=== PATIENT | female | born 1965 | race Caucasian/White ===

== ENCOUNTER 2023-02-20 15:25 | Inpatient (IN) | payer MEDICARE ==
[~2023-02-20] VITALS: Ht 162.6 cm; Wt 73.5 kg
[2023-02-20 20:00] VITALS: BP 148/86; TEMP 97.5
[2023-02-20] MEDS ORDERED: LORAZEPAM 0.5 MG TABLET PO PRN (20:00)
[2023-02-20] MEDS ORDERED: BLOOD SUGAR DIAGNOSTIC 1 EACH STRIP IN ONE (20:00)
[2023-02-20] MEDS ORDERED: MAG HYDROX/AL HYDROX/SIMETH 30 ML UDC PO PRN (20:00)
[2023-02-20] MEDS ORDERED: MAGNESIUM HYDROXIDE 30 ML UDC PO PRN (20:00)
[2023-02-20] MEDS ORDERED: CLON0.5T4 PO (20:35)
[2023-02-20] MEDS ORDERED: FAMO20TA8 PO (20:35)
[2023-02-20] MEDS ORDERED: LACT10SO29 PO (20:35)
[2023-02-20] MEDS ORDERED: BENZ1TAB7 PO (20:35)
[2023-02-20] MEDS ORDERED: MELA3TAB41 PO (20:35)
[2023-02-20] MEDS ORDERED: BISA10SU11 RC (20:35)
[2023-02-20] MEDS ORDERED: NA P133E RC (20:35)
[2023-02-20] MEDS ORDERED: HALO0.5T PO (20:35)
[2023-02-20] MEDS ORDERED: FOLI0.4T6 PO (20:35)
[2023-02-20] MEDS ORDERED: SENN-261 PO (20:35)
[2023-02-20] MEDS ORDERED: OLAN2.5T3 PO (20:35)
[2023-02-20 20:50] VITALS: BP 148/86; TEMP 97.5; O2SAT 100
[2023-02-21] MEDS: ZOLPIDEM TARTRATE 5 MG TABLET PO PRN ×2 (00:10→21:08)
[2023-02-21] MEDS: ACETAMINOPHEN 325 MG TABLET PO PRN (04:44)
[2023-02-21 08:00] VITALS: BP 137/84; TEMP 97.9; O2SAT 100
[2023-02-21 08:37] LABS: ALBUMIN 2.7 g/dL (3.4-5.0); BILIRUBIN,TOTAL 0.2 mg/dL (0.2-1.0); CREATININE 0.9 mg/dL (0.6-1.3); POTASSIUM 4.6 mmol/L (3.5-5.1); TOTAL PROTEIN, SERUM 7.2 g/dL (6.4-8.2)
[2023-02-21] MEDS ORDERED: BISACODYL SUPP (10 MG) 10 MG/SUPP.RECT SUPP.RECT RC PRN (09:00)
[2023-02-21] MEDS ORDERED: NA PHOS,M-B/NA PHOS,DI-BA 1 EA ENEMA RC PRN (09:00)
[2023-02-21] MEDS ORDERED: SENNOSIDES 8.6 MG TABLET PO PRN (09:00)
[2023-02-21] MEDS: LACTULOSE 10 G/15 ML UDC (PYXIS) PO SCH ×2 (09:07→17:43)
[2023-02-21] MEDS: FAMOTIDINE (20 MG) 20 MG TABLET PO SCH ×2 (09:07→17:43)
[2023-02-21] MEDS: FOLIC ACID 1 MG TABLET PO SCH (09:07)
[2023-02-21] MEDS ORDERED: MAGN400O6 PO (10:14)
[2023-02-21] MEDS ORDERED: ACET-868 PO (10:14)
[2023-02-21] MEDS ORDERED: LORA-259 PO (10:14)
[2023-02-21] MEDS: DIVALPROEX SODIUM 250 MG TABLET.DR PO SCH ×3 (10:27→17:43)
[2023-02-21 16:00] VITALS: BP 146/93; TEMP 98.6; O2SAT 100
[2023-02-21] MEDS ORDERED: OLANZAPINE 10 MG VIAL IM STA (16:05)
[2023-02-21] MEDS: HALOPERIDOL 5 MG TABLET PO SCH (17:44)
[2023-02-21] MEDS: BENZTROPINE MESYLATE (1 MG) 1 MG TABLET PO SCH (17:45)
[2023-02-21 20:10] VITALS: BP 150/90; TEMP 98.4; O2SAT 100
[2023-02-21] MEDS ORDERED: Medication Not On Formulary EA (Melatonin 3 MG) PO SCH (22:00)
[2023-02-22] MEDS: LORAZEPAM 0.5 MG TABLET PO PRN ×2 (01:04→08:59)
[2023-02-22 08:00] VITALS: BP 150/85; TEMP 97.6; O2SAT 98
[2023-02-22] MEDS: LACTULOSE 10 G/15 ML UDC (PYXIS) PO SCH ×2 (08:23→16:55)
[2023-02-22] MEDS: DIVALPROEX SODIUM 250 MG TABLET.DR PO SCH ×3 (08:23→16:55)
[2023-02-22] MEDS: FAMOTIDINE (20 MG) 20 MG TABLET PO SCH ×2 (08:23→16:55)
[2023-02-22] MEDS: HALOPERIDOL 5 MG TABLET PO SCH ×2 (08:23→16:55)
[2023-02-22] MEDS: FOLIC ACID 1 MG TABLET PO SCH (08:23)
[2023-02-22] MEDS: BENZTROPINE MESYLATE (1 MG) 1 MG TABLET PO SCH ×2 (08:23→16:55)
[2023-02-22] MEDS ORDERED: OLANZAPINE 10 MG VIAL IM ONE (09:30)
[2023-02-22] MEDS ORDERED: diphenhydrAMINE HCL 50 MG/ML VIAL IV ONE (14:30)
[2023-02-22] MEDS ORDERED: LORAZEPAM INJ 2 MG/ML VIAL IM ONE (14:30)
[2023-02-22] MEDS ORDERED: HALOPERIDOL LACTATE INJ 5 MG/ML VIAL IM ONE (14:30)
[2023-02-22 16:00] VITALS: BP 141/93; TEMP 97.8; O2SAT 96
[2023-02-22] MEDS: AMMONIUM LACTATE 227 GM BOTTLE TP SCH (16:56)
[2023-02-22 20:00] VITALS: BP 126/84; TEMP 97.3; O2SAT 98
[2023-02-23] MEDS: ZOLPIDEM TARTRATE 5 MG TABLET PO PRN (00:25)
[2023-02-23] MEDS: ACETAMINOPHEN 325 MG TABLET PO PRN (02:54)
[2023-02-23] MEDS: LORAZEPAM 0.5 MG TABLET PO PRN (08:23)
[2023-02-23] MEDS: FAMOTIDINE (20 MG) 20 MG TABLET PO SCH ×2 (08:23→16:33)
[2023-02-23] MEDS: DIVALPROEX SODIUM 250 MG TABLET.DR PO SCH ×4 (08:23→21:20)
[2023-02-23] MEDS: BENZTROPINE MESYLATE (1 MG) 1 MG TABLET PO SCH ×2 (08:23→16:33)
[2023-02-23] MEDS: FOLIC ACID 1 MG TABLET PO SCH (08:23)
[2023-02-23] MEDS: HALOPERIDOL 5 MG TABLET PO SCH ×2 (08:23→16:33)
[2023-02-23] MEDS: LACTULOSE 10 G/15 ML UDC (PYXIS) PO SCH ×2 (08:30→16:33)
[2023-02-23] MEDS: AMMONIUM LACTATE 227 GM BOTTLE TP SCH ×2 (08:30→16:33)
[2023-02-23] MEDS: LORAZEPAM 1 MG TABLET PO PRN (12:08)
[2023-02-23 12:18] LABS: THYROID STIMULATING HORMONE 3.183 uIU/mL (0.358-3.74)
[2023-02-23] MEDS ORDERED: OLANZAPINE 10 MG VIAL IM ONE (13:30)
[2023-02-23] MEDS ORDERED: LORAZEPAM 0.5 MG TABLET PO PRN (16:00)
[2023-02-24] MEDS: BENZTROPINE MESYLATE (1 MG) 1 MG TABLET PO SCH ×2 (07:43→17:24)
[2023-02-24] MEDS: LACTULOSE 10 G/15 ML UDC (PYXIS) PO SCH ×2 (07:43→17:24)
[2023-02-24] MEDS: DIVALPROEX SODIUM 250 MG TABLET.DR PO SCH ×4 (07:43→21:15)
[2023-02-24] MEDS: HALOPERIDOL 5 MG TABLET PO SCH ×2 (07:43→17:24)
[2023-02-24] MEDS: LORAZEPAM 1 MG TABLET PO PRN (07:43)
[2023-02-24] MEDS: FOLIC ACID 1 MG TABLET PO SCH (07:43)
[2023-02-24] MEDS: FAMOTIDINE (20 MG) 20 MG TABLET PO SCH ×2 (07:43→17:24)
[2023-02-24] MEDS: AMMONIUM LACTATE 227 GM BOTTLE TP SCH ×2 (07:44→17:22)
[2023-02-24 08:00] VITALS: BP 152/91; TEMP 98.1; O2SAT 98
[2023-02-24] MEDS ORDERED: OLANZAPINE 10 MG VIAL IM ONE (14:00)
[2023-02-24 16:00] VITALS: BP 149/90; TEMP 97.6; O2SAT 96
[2023-02-24 20:56] VITALS: BP 143/88; TEMP 97.9; O2SAT 96
[2023-02-25] MEDS: ACETAMINOPHEN 325 MG TABLET PO PRN (00:33)
[2023-02-25 08:00] VITALS: BP 128/90; TEMP 98.2; O2SAT 98
[2023-02-25] MEDS: FAMOTIDINE (20 MG) 20 MG TABLET PO SCH ×2 (08:00→16:46)
[2023-02-25] MEDS: LORAZEPAM 1 MG TABLET PO PRN ×2 (08:00→16:46)
[2023-02-25] MEDS: LACTULOSE 10 G/15 ML UDC (PYXIS) PO SCH ×2 (08:00→16:47)
[2023-02-25] MEDS: BENZTROPINE MESYLATE (1 MG) 1 MG TABLET PO SCH ×2 (08:00→16:46)
[2023-02-25] MEDS: DIVALPROEX SODIUM 250 MG TABLET.DR PO SCH ×4 (08:00→21:13)
[2023-02-25] MEDS: HALOPERIDOL 5 MG TABLET PO SCH ×2 (08:00→16:46)
[2023-02-25] MEDS: FOLIC ACID 1 MG TABLET PO SCH (08:00)
[2023-02-25] MEDS: AMMONIUM LACTATE 227 GM BOTTLE TP SCH ×2 (09:26→16:47)
[2023-02-25] MEDS: LITHIUM CARBONATE 150 MG CAPSULE PO SCH ×2 (11:46→21:13)
[2023-02-25 16:06] VITALS: BP 127/89; TEMP 97.8; O2SAT 98
[2023-02-25 20:20] VITALS: BP 130/96; TEMP 98.1; O2SAT 98
[2023-02-26] MEDS: ACETAMINOPHEN 325 MG TABLET PO PRN (04:57)
[2023-02-26] MEDS: LORAZEPAM 1 MG TABLET PO PRN ×2 (07:47→16:36)
[2023-02-26] MEDS: FAMOTIDINE (20 MG) 20 MG TABLET PO SCH ×2 (08:09→16:38)
[2023-02-26] MEDS: FOLIC ACID 1 MG TABLET PO SCH (08:09)
[2023-02-26] MEDS: HALOPERIDOL 5 MG TABLET PO SCH ×3 (08:10→16:37)
[2023-02-26] MEDS: LITHIUM CARBONATE 150 MG CAPSULE PO SCH ×2 (08:10→20:09)
[2023-02-26] MEDS: DIVALPROEX SODIUM 250 MG TABLET.DR PO SCH ×4 (08:11→20:09)
[2023-02-26] MEDS: LACTULOSE 10 G/15 ML UDC (PYXIS) PO SCH ×2 (08:12→16:38)
[2023-02-26] MEDS: BENZTROPINE MESYLATE (1 MG) 1 MG TABLET PO SCH ×2 (08:58→16:37)
[2023-02-26] MEDS: AMMONIUM LACTATE 227 GM BOTTLE TP SCH ×2 (09:00→16:39)
[2023-02-26] MEDS ORDERED: OLANZAPINE 10 MG VIAL IM ONE (09:00)
[2023-02-26] MEDS ORDERED: diphenhydrAMINE HCL 50 MG/ML VIAL IV ONE (14:00)
[2023-02-26] MEDS ORDERED: HALOPERIDOL LACTATE INJ 5 MG/ML VIAL IM ONE (14:00)
[2023-02-26 16:00] VITALS: BP 156/69; TEMP 98.1; O2SAT 95
[2023-02-26 20:27] VITALS: BP 133/77; TEMP 98.2; O2SAT 100
[2023-02-27 08:00] VITALS: BP 106/78; TEMP 98.1; O2SAT 100
[2023-02-27] MEDS: LITHIUM CARBONATE 150 MG CAPSULE PO SCH ×2 (08:00→21:14)
[2023-02-27] MEDS: LACTULOSE 10 G/15 ML UDC (PYXIS) PO SCH ×2 (08:00→17:00)
[2023-02-27] MEDS: DIVALPROEX SODIUM 250 MG TABLET.DR PO SCH ×4 (08:01→21:14)
[2023-02-27] MEDS: HALOPERIDOL 5 MG TABLET PO SCH ×3 (08:01→17:00)
[2023-02-27] MEDS: FOLIC ACID 1 MG TABLET PO SCH (08:01)
[2023-02-27] MEDS: BENZTROPINE MESYLATE (1 MG) 1 MG TABLET PO SCH ×2 (08:01→17:00)
[2023-02-27] MEDS: FAMOTIDINE (20 MG) 20 MG TABLET PO SCH ×2 (08:02→17:00)
[2023-02-27] MEDS: AMMONIUM LACTATE 227 GM BOTTLE TP SCH ×2 (08:02→17:00)
[2023-02-27] MEDS: LORAZEPAM 1 MG TABLET PO PRN (15:04)
[2023-02-27 16:00] VITALS: BP 114/98; TEMP 98.6; O2SAT 100
[2023-02-27 20:19] VITALS: BP 124/84; TEMP 98.2; O2SAT 100
[2023-02-28] MEDS: ZOLPIDEM TARTRATE 5 MG TABLET PO PRN (01:32)
[2023-02-28] MEDS: ACETAMINOPHEN 325 MG TABLET PO PRN (07:09)
[2023-02-28 08:00] VITALS: BP 111/69; TEMP 97.8; O2SAT 98
[2023-02-28] MEDS: LITHIUM CARBONATE 150 MG CAPSULE PO SCH ×2 (08:04→20:15)
[2023-02-28] MEDS: FOLIC ACID 1 MG TABLET PO SCH (08:04)
[2023-02-28] MEDS: DIVALPROEX SODIUM 250 MG TABLET.DR PO SCH ×4 (08:04→20:15)
[2023-02-28] MEDS: FAMOTIDINE (20 MG) 20 MG TABLET PO SCH ×2 (08:04→16:23)
[2023-02-28] MEDS: BENZTROPINE MESYLATE (1 MG) 1 MG TABLET PO SCH ×2 (08:04→16:23)
[2023-02-28] MEDS: LACTULOSE 10 G/15 ML UDC (PYXIS) PO SCH ×2 (08:04→16:22)
[2023-02-28] MEDS: HALOPERIDOL 5 MG TABLET PO SCH ×3 (08:04→16:23)
[2023-02-28] MEDS: AMMONIUM LACTATE 227 GM BOTTLE TP SCH ×2 (08:09→16:25)
[2023-02-28] MEDS: LORAZEPAM 1 MG TABLET PO PRN (13:43)
[2023-02-28 16:00] VITALS: BP 126/70; TEMP 97.9; O2SAT 100
[2023-02-28 20:06] VITALS: BP 126/65; TEMP 98.6; O2SAT 97
[2023-03-01] MEDS: ACETAMINOPHEN 325 MG TABLET PO PRN (04:55)
[2023-03-01] MEDS: BENZTROPINE MESYLATE (1 MG) 1 MG TABLET PO SCH ×2 (08:13→17:15)
[2023-03-01] MEDS: LITHIUM CARBONATE 150 MG CAPSULE PO SCH ×4 (08:13→17:15)
[2023-03-01] MEDS: FOLIC ACID 1 MG TABLET PO SCH (08:13)
[2023-03-01] MEDS: LACTULOSE 10 G/15 ML UDC (PYXIS) PO SCH ×2 (08:14→17:16)
[2023-03-01] MEDS: DIVALPROEX SODIUM 250 MG TABLET.DR PO SCH ×4 (08:14→17:15)
[2023-03-01] MEDS: HALOPERIDOL 5 MG TABLET PO SCH ×3 (08:14→17:15)
[2023-03-01] MEDS: FAMOTIDINE (20 MG) 20 MG TABLET PO SCH ×2 (08:14→17:16)
[2023-03-01] MEDS: AMMONIUM LACTATE 227 GM BOTTLE TP SCH ×2 (08:15→17:22)
[2023-03-01] MEDS: LORAZEPAM 1 MG TABLET PO PRN (14:21)
[2023-03-01 22:00] VITALS: BP 134/69; TEMP 98; O2SAT 98
[2023-03-02] MEDS: LORAZEPAM 1 MG TABLET PO PRN (01:39)
[2023-03-02 08:00] VITALS: BP 112/62; TEMP 98; O2SAT 100
[2023-03-02] MEDS: DIVALPROEX SODIUM 250 MG TABLET.DR PO SCH ×3 (08:03→16:45)
[2023-03-02] MEDS: BENZTROPINE MESYLATE (1 MG) 1 MG TABLET PO SCH ×2 (08:03→16:46)
[2023-03-02] MEDS: LITHIUM CARBONATE 150 MG CAPSULE PO SCH ×3 (08:03→16:45)
[2023-03-02] MEDS: FAMOTIDINE (20 MG) 20 MG TABLET PO SCH ×2 (08:03→16:46)
[2023-03-02] MEDS: HALOPERIDOL 5 MG TABLET PO SCH ×3 (08:03→16:46)
[2023-03-02] MEDS: FOLIC ACID 1 MG TABLET PO SCH (08:03)
[2023-03-02] MEDS: LACTULOSE 10 G/15 ML UDC (PYXIS) PO SCH ×2 (08:04→16:46)
[2023-03-02] MEDS: AMMONIUM LACTATE 227 GM BOTTLE TP SCH ×2 (08:08→16:50)
[2023-03-02 16:00] VITALS: BP 119/67; TEMP 98.6; O2SAT 100
[2023-03-02 20:06] VITALS: BP 108/54; TEMP 99.7; O2SAT 100
[2023-03-03] MEDS: LORAZEPAM 1 MG TABLET PO PRN (04:55)
[2023-03-03 08:00] VITALS: BP 119/71; TEMP 97.6; O2SAT 100
[2023-03-03] MEDS ORDERED: HALOPERIDOL LACTATE INJ 5 MG/ML VIAL IM ONE (08:00)
[2023-03-03] MEDS ORDERED: LORAZEPAM INJ 2 MG/ML VIAL IM ONE (08:00)
[2023-03-03] MEDS ORDERED: diphenhydrAMINE HCL 50 MG/ML VIAL IM ONE (08:00)
[2023-03-03] MEDS: HALOPERIDOL 5 MG TABLET PO SCH ×3 (09:00→17:07)
[2023-03-03] MEDS: DIVALPROEX SODIUM 250 MG TABLET.DR PO SCH ×3 (09:14→17:07)
[2023-03-03] MEDS: FAMOTIDINE (20 MG) 20 MG TABLET PO SCH ×2 (09:14→17:07)
[2023-03-03] MEDS: LITHIUM CARBONATE 150 MG CAPSULE PO SCH ×3 (09:14→17:07)
[2023-03-03] MEDS: LACTULOSE 10 G/15 ML UDC (PYXIS) PO SCH ×2 (09:14→17:10)
[2023-03-03] MEDS: FOLIC ACID 1 MG TABLET PO SCH (09:14)
[2023-03-03] MEDS: BENZTROPINE MESYLATE (1 MG) 1 MG TABLET PO SCH ×2 (09:14→17:07)
[2023-03-03] MEDS: AMMONIUM LACTATE 227 GM BOTTLE TP SCH ×2 (09:49→17:08)
[2023-03-03 16:00] VITALS: BP 108/71; TEMP 97.6; O2SAT 99
[2023-03-03 20:00] VITALS: BP 110/69; TEMP 98.6; O2SAT 100
[2023-03-04] MEDS: LITHIUM CARBONATE 150 MG CAPSULE PO SCH ×3 (08:04→17:21)
[2023-03-04] MEDS: LACTULOSE 10 G/15 ML UDC (PYXIS) PO SCH ×2 (08:04→17:21)
[2023-03-04] MEDS: HALOPERIDOL 5 MG TABLET PO SCH ×3 (08:04→17:21)
[2023-03-04] MEDS: FAMOTIDINE (20 MG) 20 MG TABLET PO SCH ×2 (08:05→17:21)
[2023-03-04] MEDS: DIVALPROEX SODIUM 250 MG TABLET.DR PO SCH ×3 (08:05→17:22)
[2023-03-04] MEDS: BENZTROPINE MESYLATE (1 MG) 1 MG TABLET PO SCH ×2 (08:05→17:21)
[2023-03-04] MEDS: AMMONIUM LACTATE 227 GM BOTTLE TP SCH ×2 (08:05→17:00)
[2023-03-04] MEDS: FOLIC ACID 1 MG TABLET PO SCH (08:06)
[2023-03-04 20:02] VITALS: BP 117/65; TEMP 98.4; O2SAT 99
[2023-03-04] MEDS: LORAZEPAM 1 MG TABLET PO PRN (20:24)
[2023-03-04] MEDS: ACETAMINOPHEN 325 MG TABLET PO PRN (20:28)
[2023-03-05 08:00] VITALS: BP 116/61; TEMP 98.6; O2SAT 97
[2023-03-05] MEDS: LACTULOSE 10 G/15 ML UDC (PYXIS) PO SCH ×2 (08:47→16:43)
[2023-03-05] MEDS: LORAZEPAM 1 MG TABLET PO PRN ×2 (08:48→16:43)
[2023-03-05] MEDS: LITHIUM CARBONATE 150 MG CAPSULE PO SCH ×3 (08:48→16:44)
[2023-03-05] MEDS: FOLIC ACID 1 MG TABLET PO SCH (08:48)
[2023-03-05] MEDS: DIVALPROEX SODIUM 250 MG TABLET.DR PO SCH ×3 (08:48→16:43)
[2023-03-05] MEDS: FAMOTIDINE (20 MG) 20 MG TABLET PO SCH ×2 (08:48→16:43)
[2023-03-05] MEDS: AMMONIUM LACTATE 227 GM BOTTLE TP SCH ×2 (08:49→16:45)
[2023-03-05] MEDS: HALOPERIDOL 5 MG TABLET PO SCH ×4 (08:49→21:28)
[2023-03-05] MEDS: BENZTROPINE MESYLATE (1 MG) 1 MG TABLET PO SCH ×2 (08:49→16:43)
[2023-03-05 16:00] VITALS: BP 127/76; TEMP 97.9; O2SAT 96
[2023-03-05] MEDS ORDERED: OLANZAPINE 10 MG VIAL IM ONE (17:30)
[2023-03-05 21:53] VITALS: BP 112/76; TEMP 98; O2SAT 99
[2023-03-06 08:00] VITALS: BP 129/79; TEMP 98.7; O2SAT 100
[2023-03-06] MEDS: LACTULOSE 10 G/15 ML UDC (PYXIS) PO SCH ×2 (08:26→16:03)
[2023-03-06] MEDS: LITHIUM CARBONATE 150 MG CAPSULE PO SCH ×3 (08:27→16:03)
[2023-03-06] MEDS: BENZTROPINE MESYLATE (1 MG) 1 MG TABLET PO SCH ×2 (08:27→16:03)
[2023-03-06] MEDS: HALOPERIDOL 5 MG TABLET PO SCH ×4 (08:27→21:27)
[2023-03-06] MEDS: DIVALPROEX SODIUM 250 MG TABLET.DR PO SCH ×3 (08:27→16:04)
[2023-03-06] MEDS: FOLIC ACID 1 MG TABLET PO SCH (08:27)
[2023-03-06] MEDS: FAMOTIDINE (20 MG) 20 MG TABLET PO SCH ×2 (08:28→16:04)
[2023-03-06] MEDS: AMMONIUM LACTATE 227 GM BOTTLE TP SCH ×2 (08:28→16:10)
[2023-03-06] MEDS: clonazePAM 0.5 MG TABLET PO SCH ×3 (10:35→16:06)
[2023-03-06 16:00] VITALS: BP 113/62; TEMP 98.7; O2SAT 100
[2023-03-06] MEDS: hydrOXYzine PAMOATE 25 MG CAPSULE PO PRN (19:26)
[2023-03-06 20:28] VITALS: BP 132/69; TEMP 97.8; O2SAT 99
[2023-03-07] MEDS: DIVALPROEX SODIUM 250 MG TABLET.DR PO SCH ×4 (08:32→21:54)
[2023-03-07] MEDS: hydrOXYzine PAMOATE 25 MG CAPSULE PO PRN (08:32)
[2023-03-07] MEDS: FAMOTIDINE (20 MG) 20 MG TABLET PO SCH ×2 (08:33→16:24)
[2023-03-07] MEDS: BENZTROPINE MESYLATE (1 MG) 1 MG TABLET PO SCH ×2 (08:33→16:24)
[2023-03-07] MEDS: clonazePAM 0.5 MG TABLET PO SCH ×3 (08:33→16:24)
[2023-03-07] MEDS: LITHIUM CARBONATE 150 MG CAPSULE PO SCH ×3 (08:33→16:24)
[2023-03-07] MEDS: FOLIC ACID 1 MG TABLET PO SCH (08:33)
[2023-03-07] MEDS: HALOPERIDOL 5 MG TABLET PO SCH ×4 (08:34→21:54)
[2023-03-07] MEDS: LACTULOSE 10 G/15 ML UDC (PYXIS) PO SCH ×2 (08:34→16:23)
[2023-03-07] MEDS: AMMONIUM LACTATE 227 GM BOTTLE TP SCH ×2 (08:35→17:02)
[2023-03-07 16:00] VITALS: BP 108/70; TEMP 98.6; O2SAT 100
[2023-03-07 20:29] VITALS: BP 119/64; TEMP 98.2; O2SAT 99
[2023-03-07 21:55] VITALS: BP 118/68; TEMP 98; O2SAT 99
[2023-03-08 08:00] VITALS: BP 106/64; TEMP 97.8; O2SAT 100
[2023-03-08] MEDS: LACTULOSE 10 G/15 ML UDC (PYXIS) PO SCH ×2 (09:07→16:47)
[2023-03-08] MEDS: clonazePAM 0.5 MG TABLET PO SCH ×3 (09:08→16:46)
[2023-03-08] MEDS: HALOPERIDOL 5 MG TABLET PO SCH ×4 (09:08→20:39)
[2023-03-08] MEDS: FAMOTIDINE (20 MG) 20 MG TABLET PO SCH ×2 (09:08→16:46)
[2023-03-08] MEDS: FOLIC ACID 1 MG TABLET PO SCH (09:08)
[2023-03-08] MEDS: DIVALPROEX SODIUM 250 MG TABLET.DR PO SCH ×4 (09:08→20:39)
[2023-03-08] MEDS: LITHIUM CARBONATE 150 MG CAPSULE PO SCH (09:08)
[2023-03-08] MEDS: BENZTROPINE MESYLATE (1 MG) 1 MG TABLET PO SCH ×2 (09:08→16:46)
[2023-03-08] MEDS: AMMONIUM LACTATE 227 GM BOTTLE TP SCH ×2 (12:25→16:47)
[2023-03-08] MEDS ORDERED: LITHIUM CARBONATE 150 MG CAPSULE PO SCH (13:00)
[2023-03-08 16:00] VITALS: BP 126/82; TEMP 97.8; O2SAT 96
[2023-03-09 06:16] VITALS: BP 126/82; TEMP 91.8; O2SAT 96
[2023-03-09 08:00] VITALS: BP 119/63; TEMP 98; O2SAT 94
[2023-03-09] MEDS: FAMOTIDINE (20 MG) 20 MG TABLET PO SCH ×2 (08:26→17:00)
[2023-03-09] MEDS: BENZTROPINE MESYLATE (1 MG) 1 MG TABLET PO SCH ×2 (08:26→17:00)
[2023-03-09] MEDS: HALOPERIDOL 5 MG TABLET PO SCH ×4 (08:26→21:00)
[2023-03-09] MEDS: LACTULOSE 10 G/15 ML UDC (PYXIS) PO SCH ×2 (08:26→17:00)
[2023-03-09] MEDS: DIVALPROEX SODIUM 250 MG TABLET.DR PO SCH ×4 (08:27→21:00)
[2023-03-09] MEDS: clonazePAM 0.5 MG TABLET PO SCH ×3 (08:27→17:00)
[2023-03-09] MEDS: FOLIC ACID 1 MG TABLET PO SCH (08:28)
[2023-03-09] MEDS: AMMONIUM LACTATE 227 GM BOTTLE TP SCH ×2 (08:45→17:00)
[2023-03-09] MEDS: OLANZAPINE 5 MG TABLET PO SCH ×2 (11:35→17:00)
[2023-03-09] MEDS: LITHIUM CARBONATE 150 MG CAPSULE PO SCH ×2 (12:16→17:00)
[2023-03-09 16:00] VITALS: BP 98/60; TEMP 98.6; O2SAT 100
[2023-03-09 20:00] VITALS: BP 144/86; TEMP 98.1; O2SAT 98
[2023-03-10 08:00] VITALS: BP 101/69; TEMP 97.7; O2SAT 100
[2023-03-10] MEDS: HALOPERIDOL 5 MG TABLET PO SCH ×4 (09:00→20:38)
[2023-03-10] MEDS: DIVALPROEX SODIUM 250 MG TABLET.DR PO SCH ×4 (09:00→20:37)
[2023-03-10] MEDS: LITHIUM CARBONATE 150 MG CAPSULE PO SCH ×3 (09:00→16:09)
[2023-03-10] MEDS ORDERED: MIDODRINE HCL (5MG) 5 MG TABLET PO PRN (10:00)
[2023-03-10] MEDS: FAMOTIDINE (20 MG) 20 MG TABLET PO SCH ×2 (10:59→17:05)
[2023-03-10] MEDS: FOLIC ACID 1 MG TABLET PO SCH (11:00)
[2023-03-10] MEDS: LACTULOSE 10 G/15 ML UDC (PYXIS) PO SCH ×3 (11:00→17:05)
[2023-03-10] MEDS: BENZTROPINE MESYLATE (1 MG) 1 MG TABLET PO SCH ×2 (11:00→17:05)
[2023-03-10] MEDS: AMMONIUM LACTATE 227 GM BOTTLE TP SCH ×2 (12:14→17:52)
[2023-03-10] MEDS: OLANZAPINE 5 MG TABLET PO SCH ×2 (12:15→17:05)
[2023-03-10 13:28] LABS: APPEARANCE,URINE CLEAR (CLEAR); BILIRUBIN,URINE NEGATIVE (NEGATIVE); BLOOD, URINE NEGATIVE Ery/uL (NEGATIVE); COLOR,URINE YELLOW (YELLOW); KETONES,URINE NEGATIVE (NEGATIVE); LEUKOCYTE ESTERASE ,URINE 1+ (NEGATIVE); NITRITE, URINE NEGATIVE (NEGATIVE); PH,URINE 6.5 (5.0-8.0); PROTEIN,URINE NEGATIVE (NEGATIVE); UGLUCOSE NEGATIVE (NEGATIVE)
[2023-03-10 15:36] LABS: ADD URINE CULTURE YES; BACTERIA,URINE 1+ /HPF (None Seen); RBC,URINE 0-2 /HPF (0-2); SQUAMOUS EPITHELIAL CELL,UR Few /HPF (None Seen)
[2023-03-10 16:00] VITALS: BP 131/77; TEMP 97.9; O2SAT 100
[2023-03-10] MEDS: SULFAMETH/TRIMETH 800/160 MG 1 UDTAB TABLET PO SCH ×2 (18:11→21:00)
[2023-03-10 20:02] VITALS: BP 145/73; TEMP 98.2; O2SAT 99
[2023-03-11 08:00] VITALS: BP 129/76; TEMP 97.8; O2SAT 100
[2023-03-11] MEDS: hydrOXYzine PAMOATE 25 MG CAPSULE PO PRN (08:00)
[2023-03-11] MEDS: FAMOTIDINE (20 MG) 20 MG TABLET PO SCH ×2 (08:00→17:36)
[2023-03-11] MEDS: FOLIC ACID 1 MG TABLET PO SCH (08:00)
[2023-03-11] MEDS: LITHIUM CARBONATE 150 MG CAPSULE PO SCH ×3 (08:00→17:37)
[2023-03-11] MEDS: HALOPERIDOL 5 MG TABLET PO SCH ×4 (08:00→21:30)
[2023-03-11] MEDS: DIVALPROEX SODIUM 250 MG TABLET.DR PO SCH ×4 (08:00→21:31)
[2023-03-11] MEDS: LACTULOSE 10 G/15 ML UDC (PYXIS) PO SCH ×2 (08:00→17:36)
[2023-03-11] MEDS: SULFAMETH/TRIMETH 800/160 MG 1 UDTAB TABLET PO SCH ×2 (08:01→21:30)
[2023-03-11] MEDS: BENZTROPINE MESYLATE (1 MG) 1 MG TABLET PO SCH ×2 (08:01→17:36)
[2023-03-11] MEDS: OLANZAPINE 5 MG TABLET PO SCH ×2 (08:01→17:39)
[2023-03-11] MEDS: AMMONIUM LACTATE 227 GM BOTTLE TP SCH ×2 (08:08→17:36)
[2023-03-11 16:00] VITALS: BP 130/76; TEMP 98; O2SAT 98
[2023-03-11] MEDS: ZOLPIDEM TARTRATE 5 MG TABLET PO PRN (19:52)
[2023-03-11 20:00] VITALS: BP 145/73; TEMP 98.2; O2SAT 99
[2023-03-12 08:00] VITALS: BP 127/84; TEMP 98.6; O2SAT 98
[2023-03-12] MEDS: DIVALPROEX SODIUM 250 MG TABLET.DR PO SCH ×4 (09:10→21:10)
[2023-03-12] MEDS: FOLIC ACID 1 MG TABLET PO SCH (09:10)
[2023-03-12] MEDS: LITHIUM CARBONATE 150 MG CAPSULE PO SCH ×3 (09:10→16:29)
[2023-03-12] MEDS: BENZTROPINE MESYLATE (1 MG) 1 MG TABLET PO SCH ×2 (09:10→16:29)
[2023-03-12] MEDS: FAMOTIDINE (20 MG) 20 MG TABLET PO SCH ×2 (09:10→16:29)
[2023-03-12] MEDS: HALOPERIDOL 5 MG TABLET PO SCH ×4 (09:11→21:10)
[2023-03-12] MEDS: LACTULOSE 10 G/15 ML UDC (PYXIS) PO SCH ×2 (09:12→16:28)
[2023-03-12] MEDS: SULFAMETH/TRIMETH 800/160 MG 1 UDTAB TABLET PO SCH ×2 (09:15→21:10)
[2023-03-12] MEDS: OLANZAPINE 5 MG TABLET PO SCH ×2 (09:15→16:29)
[2023-03-12] MEDS: AMMONIUM LACTATE 227 GM BOTTLE TP SCH ×2 (09:16→17:19)
[2023-03-12] MEDS: hydrOXYzine PAMOATE 25 MG CAPSULE PO PRN (12:25)
[2023-03-12 16:00] VITALS: BP 106/62; TEMP 98.7; O2SAT 97
[2023-03-12 20:32] VITALS: BP 109/67; TEMP 98.2; O2SAT 100
[2023-03-13 08:00] VITALS: BP 126/74; TEMP 97.8; O2SAT 95
[2023-03-13] MEDS: SULFAMETH/TRIMETH 800/160 MG 1 UDTAB TABLET PO SCH ×2 (08:09→20:29)
[2023-03-13] MEDS: BENZTROPINE MESYLATE (1 MG) 1 MG TABLET PO SCH ×2 (08:09→16:35)
[2023-03-13] MEDS: LACTULOSE 10 G/15 ML UDC (PYXIS) PO SCH ×2 (08:09→16:36)
[2023-03-13] MEDS: LITHIUM CARBONATE 150 MG CAPSULE PO SCH ×3 (08:09→16:35)
[2023-03-13] MEDS: FAMOTIDINE (20 MG) 20 MG TABLET PO SCH ×2 (08:09→16:35)
[2023-03-13] MEDS: DIVALPROEX SODIUM 250 MG TABLET.DR PO SCH ×4 (08:09→20:29)
[2023-03-13] MEDS: OLANZAPINE 5 MG TABLET PO SCH ×3 (08:09→16:35)
[2023-03-13] MEDS: HALOPERIDOL 5 MG TABLET PO SCH ×4 (08:09→21:05)
[2023-03-13] MEDS: FOLIC ACID 1 MG TABLET PO SCH (08:09)
[2023-03-13] MEDS: AMMONIUM LACTATE 227 GM BOTTLE TP SCH ×2 (08:14→16:41)
[2023-03-13] MEDS: hydrOXYzine PAMOATE 25 MG CAPSULE PO PRN (11:17)
[2023-03-13 16:02] VITALS: BP 140/72; TEMP 97.8; O2SAT 99
[2023-03-13 20:00] VITALS: BP 97/60; TEMP 97.8; O2SAT 100
[2023-03-14] MEDS: ACETAMINOPHEN 325 MG TABLET PO PRN (04:17)
[2023-03-14 08:00] VITALS: BP 132/78; TEMP 98.7; O2SAT 98
[2023-03-14] MEDS: LACTULOSE 10 G/15 ML UDC (PYXIS) PO SCH ×2 (08:39→16:47)
[2023-03-14] MEDS: BENZTROPINE MESYLATE (1 MG) 1 MG TABLET PO SCH ×2 (08:40→16:47)
[2023-03-14] MEDS: SULFAMETH/TRIMETH 800/160 MG 1 UDTAB TABLET PO SCH ×2 (08:40→21:27)
[2023-03-14] MEDS: LITHIUM CARBONATE 150 MG CAPSULE PO SCH ×3 (08:40→16:47)
[2023-03-14] MEDS: OLANZAPINE 5 MG TABLET PO SCH ×3 (08:40→16:47)
[2023-03-14] MEDS: FAMOTIDINE (20 MG) 20 MG TABLET PO SCH ×2 (08:40→16:46)
[2023-03-14] MEDS: HALOPERIDOL 5 MG TABLET PO SCH ×4 (08:40→21:26)
[2023-03-14] MEDS: DIVALPROEX SODIUM 250 MG TABLET.DR PO SCH ×4 (08:40→21:26)
[2023-03-14] MEDS: FOLIC ACID 1 MG TABLET PO SCH (08:40)
[2023-03-14] MEDS: AMMONIUM LACTATE 227 GM BOTTLE TP SCH ×2 (08:42→16:48)
[2023-03-14] MEDS: hydrOXYzine PAMOATE 25 MG CAPSULE PO PRN (15:38)
[2023-03-14 16:00] VITALS: BP 102/63; TEMP 98.6; O2SAT 96
[2023-03-14 20:08] VITALS: BP 116/75; TEMP 97.7; O2SAT 97
[2023-03-15] MEDS: ACETAMINOPHEN 325 MG TABLET PO PRN (00:57)
[2023-03-15 08:00] VITALS: BP 97/68; TEMP 97.9; O2SAT 94
[2023-03-15] MEDS: BENZTROPINE MESYLATE (1 MG) 1 MG TABLET PO SCH (08:46)
[2023-03-15] MEDS: AMMONIUM LACTATE 227 GM BOTTLE TP SCH (08:46)
[2023-03-15] MEDS: DIVALPROEX SODIUM 250 MG TABLET.DR PO SCH ×2 (08:46→12:21)
[2023-03-15] MEDS: OLANZAPINE 5 MG TABLET PO SCH ×2 (08:46→12:21)
[2023-03-15] MEDS: FAMOTIDINE (20 MG) 20 MG TABLET PO SCH (08:46)
[2023-03-15] MEDS: LITHIUM CARBONATE 150 MG CAPSULE PO SCH ×2 (08:46→12:21)
[2023-03-15] MEDS: SULFAMETH/TRIMETH 800/160 MG 1 UDTAB TABLET PO SCH (08:46)
[2023-03-15] MEDS: FOLIC ACID 1 MG TABLET PO SCH (08:46)
[2023-03-15] MEDS: HALOPERIDOL 5 MG TABLET PO SCH ×2 (08:46→12:21)
[2023-03-15] MEDS: LACTULOSE 10 G/15 ML UDC (PYXIS) PO SCH (08:46)
== END 2023-03-15 14:25 | DRG 885 ==
LOC: GPS 19:26
PROVIDERS: ADMIT Psychiatry & Neurology Psychiatry; ATTEND Nurse Practitioner Acute Care
DX: F20.0 Paranoid schizophrenia (principal); F79 Unspecified intellectual disabilities; F29 Unspecified psychosis not due to a substance or known physiological condition; Z79.899 Other long term (current) drug therapy; Z73.6 Limitation of activities due to disability; R53.1 Weakness; R27.8 Other lack of coordination; Z91.81 History of falling; G31.84 Mild cognitive impairment of uncertain or unknown etiology; F41.9 Anxiety disorder, unspecified; F32.A Depression, unspecified; I10 Essential (primary) hypertension; K74.60 Unspecified cirrhosis of liver; L60.3 Nail dystrophy; E11.9 Type 2 diabetes mellitus without complications; L84 Corns and callosities
CPT/HCPCS: 36415; 80053-TC; 80061-TC; 80164-TC; 81001; 82140-TC; 82962-TC; 84439-TC; 84443-TC; 84481; 87086-TC; J1200; J1630; J2060; J3490; Q0177

== ENCOUNTER 2024-09-17 12:55 | Inpatient (IN) | payer MEDICARE, OTHER ==
[~2024-09-17] VITALS: Ht 165.1 cm; Wt 67.1 kg
[~2024-09-17 12:55] MED LIST: ACET-868 PO; BISA10SU11 RC; CLON0.5T4 PO; FAMO20TA8 PO; FOLI0.4T6 PO; LACT10SO29 PO; LORA-259 PO; MAGN400O6 PO; MELA3TAB41 PO; NA P133E RC; SENN-261 PO; SULF1TAB48 PO; ZOLP5TAB8 PO
[2024-09-17] MEDS ORDERED: MULT-594 PO (14:16)
[2024-09-17] MEDS ORDERED: EMPA10TA PO (14:16)
[2024-09-17] MEDS ORDERED: LEVE500T20 PO (14:16)
[2024-09-17] MEDS ORDERED: VALP250C3 PO (14:16)
[2024-09-17] MEDS ORDERED: QUET200T PO (14:16)
[2024-09-17] MEDS ORDERED: CELE50CA2 PO (14:16)
[2024-09-17] MEDS ORDERED: OLAN5TAB3 PO (14:16)
[2024-09-17] MEDS ORDERED: HALO10TA13 PO (14:16)
[2024-09-17] MEDS ORDERED: LOSA50TA39 PO (14:16)
[2024-09-17] MEDS ORDERED: FERR325T24 PO (14:16)
[2024-09-17] MEDS ORDERED: SODI10PO PO (14:16)
[2024-09-17] MEDS ORDERED: BENZ1TAB7 PO (14:16)
[2024-09-17] MEDS: BLOOD SUGAR DIAGNOSTIC 1 EACH STRIP IN ONE (15:21)
[2024-09-17] MEDS ORDERED: MAG HYDROX/AL HYDROX/SIMETH 30 ML UDC PO PRN (15:30)
[2024-09-17] MEDS ORDERED: MAGNESIUM HYDROXIDE 30 ML UDC PO PRN (15:30)
[2024-09-17 16:00] VITALS: BP 154/72; TEMP 98.7; O2SAT 98
[2024-09-17] MEDS: FERROUS SULFATE (325 MG) 325 MG/TAB TABLET PO SCH (16:30)
[2024-09-17] MEDS: OLANZAPINE 10 MG VIAL IM ONE (16:57)
[2024-09-17] MEDS: BENZTROPINE MESYLATE (1 MG) 1 MG TABLET PO SCH (17:00)
[2024-09-17] MEDS ORDERED: HALOPERIDOL 5 MG TABLET PO SCH (17:00)
[2024-09-17] MEDS ORDERED: DIVALPROEX SODIUM 500 MG TABLET.DR PO SCH (17:00)
[2024-09-17] MEDS: FAMOTIDINE (20 MG) 20 MG TABLET PO SCH (17:00)
[2024-09-17] MEDS ORDERED: BENZTROPINE MESYLATE (1 MG) 1 MG TABLET PO SCH (17:00)
[2024-09-17] MEDS: HALOPERIDOL LACTATE INJ 5 MG/ML VIAL IM ONE (19:50)
[2024-09-17] MEDS: diphenhydrAMINE HCL 50 MG/ML VIAL IM ONE (19:51)
[2024-09-17 20:00] VITALS: BP 118/83; TEMP 97.5; O2SAT 100
[2024-09-17 20:45] VITALS: BP 118/83; TEMP 97.5; O2SAT 100
[2024-09-18 07:55] LABS: ALBUMIN 2.6 g/dL (3.4-5.0); BILIRUBIN,TOTAL 0.2 mg/dL (0.2-1.0); CREATININE 0.9 mg/dL (0.6-1.3); POTASSIUM 4.4 mmol/L (3.5-5.1)
[2024-09-18 07:59] LABS: CHOLESTEROL 171 mg/dL (<200); HDL CHOLESTEROL 72 mg/dL (40-60); LDL 80 mg/dL (0-99); TRIGLYCERIDES 52 mg/dL (30-150)
[2024-09-18] MEDS: MULTIVITAMINS,THERAGRAN 1 UDTAB TABLET PO SCH (08:13)
[2024-09-18] MEDS: HALOPERIDOL 5 MG TABLET PO SCH (08:14)
[2024-09-18] MEDS: LEVETIRACETAM (250 MG) 250 MG TABLET PO SCH (08:14)
[2024-09-18] MEDS: LOSARTAN POTASSIUM 50 MG TABLET PO SCH (08:14)
[2024-09-18] MEDS: DIVALPROEX SODIUM 500 MG TABLET.DR PO SCH (08:14)
[2024-09-18] MEDS: EMPAGLIFLOZIN 10 MG TABLET PO SCH (08:16)
[2024-09-18] MEDS ORDERED: diphenhydrAMINE HCL 50 MG/ML VIAL IM PRN (10:00)
[2024-09-18] MEDS ORDERED: HALOPERIDOL LACTATE INJ 5 MG/ML VIAL IM PRN (10:00)
[2024-09-18] MEDS ORDERED: DEXTROSE 50%-WATER 50 ML DISP.SYRIN IV PRN (13:00)
[2024-09-18 16:00] VITALS: BP 115/73; TEMP 98; O2SAT 100
[2024-09-18] MEDS: BLOOD SUGAR DIAGNOSTIC 1 EACH STRIP VI SCH (16:43)
[2024-09-18] MEDS: INSULIN REGULAR, HUMAN 100 UNIT/ML 3 ML VIAL SQ PRN (16:48)
[2024-09-18 20:00] VITALS: BP 123/83; TEMP 98; O2SAT 94
[2024-09-18] MEDS: LORAZEPAM 1 MG TABLET PO PRN (22:11)
[2024-09-18] MEDS: *INSULIN REGULAR(HUMULIN R)HUM 100 UNIT/ML VIAL SQ PRN (22:36)
[2024-09-19 08:00] VITALS: BP 116/71; TEMP 98; O2SAT 98
[2024-09-19] MEDS: OLANZAPINE 10 MG VIAL IM ONE (10:50)
[2024-09-19 16:00] VITALS: BP 113/79; TEMP 98; O2SAT 95
[2024-09-19 20:00] VITALS: BP 112/80; TEMP 98; O2SAT 96
[2024-09-19] MEDS: ZOLPIDEM TARTRATE 5 MG TABLET PO PRN (23:21)
[2024-09-20 08:00] VITALS: BP 98/70; TEMP 97.8; O2SAT 98
[2024-09-20 16:00] VITALS: BP 109/74; TEMP 98; O2SAT 96
[2024-09-20 20:00] VITALS: BP 112/84; TEMP 98; O2SAT 100
[2024-09-20 20:58] VITALS: BP 112/84; TEMP 98; O2SAT 100
[2024-09-21 08:00] VITALS: BP 117/77; TEMP 98.6; O2SAT 100
[2024-09-21] MEDS: OLANZAPINE 10 MG VIAL IM ONE ×3 (08:33→17:28)
[2024-09-21] MEDS ORDERED: Z GUARD REMEDY 4 OZ OINT TP PRN (13:00)
[2024-09-21 16:50] VITALS: BP 130/77; TEMP 98.8; O2SAT 98
[2024-09-21 20:23] VITALS: BP 145/90; TEMP 98.4; O2SAT 99
[2024-09-21] MEDS: Z GUARD REMEDY 4 OZ OINT TP SCH (20:34)
[2024-09-22 06:14] LABS: APPEARANCE,URINE CLEAR (CLEAR); BILIRUBIN,URINE NEGATIVE (NEGATIVE); BLOOD, URINE NEGATIVE Ery/uL (NEGATIVE); COLOR,URINE YELLOW (YELLOW); KETONES,URINE NEGATIVE (NEGATIVE); LEUKOCYTE ESTERASE ,URINE NEGATIVE (NEGATIVE); NITRITE, URINE NEGATIVE (NEGATIVE); PROTEIN,URINE NEGATIVE (NEGATIVE); UGLUCOSE 2+ mg/dL (NEGATIVE); UROBILINOGEN,URINE 0.2 EU/dL (0.2)
[2024-09-22 06:28] LABS: ADD URINE CULTURE NO; BACTERIA,URINE Rare /HPF (None Seen); RBC,URINE 0-2 /HPF (0-2); SQUAMOUS EPITHELIAL CELL,UR None Seen /HPF (None Seen); WBC,URINE 0-2 /HPF (0-3)
[2024-09-22] MEDS ORDERED: HALOPERIDOL LACTATE INJ 5 MG/ML VIAL IM PRN (09:00)
[2024-09-22] MEDS: HALOPERIDOL 5 MG TABLET PO SCH (09:00)
[2024-09-22] MEDS ORDERED: diphenhydrAMINE HCL 50 MG/ML VIAL IM PRN (09:00)
[2024-09-22] MEDS: clonazePAM 0.5 MG TABLET PO SCH (11:08)
[2024-09-22 16:00] VITALS: BP 100/84; TEMP 97.8; O2SAT 98
[2024-09-22 20:05] VITALS: BP 117/81; TEMP 97.9; O2SAT 98
[2024-09-23 08:00] VITALS: BP 115/67; TEMP 97.6; O2SAT 98
[2024-09-23] MEDS: DIVALPROEX SODIUM 500 MG TABLET.DR PO SCH (12:15)
[2024-09-23 16:00] VITALS: BP 106/76; TEMP 97.7; O2SAT 97
[2024-09-23 20:20] VITALS: BP 117/93; TEMP 98.3; O2SAT 100
[2024-09-24] MEDS: ACETAMINOPHEN 325 MG TABLET PO PRN (00:31)
[2024-09-24 08:00] VITALS: BP 139/72; TEMP 98.6; O2SAT 98
[2024-09-24] MEDS ORDERED: LORAZEPAM INJ 2 MG/ML VIAL IM/IV STA (13:53)
[2024-09-24] MEDS: HYDROCODONE/APAP 5/325MG TABLET PO ONE (14:00)
[2024-09-24] MEDS: LORAZEPAM INJ 2 MG/ML VIAL IM STA (14:18)
[2024-09-24 16:00] VITALS: BP 100/76; TEMP 98.2; O2SAT 97
[2024-09-24] MEDS: BACITRACIN ZINC OINT (15 GM) 15 GM TUBE TP SCH (18:10)
[2024-09-24] MEDS: TDAP [DIPH/PERTUSSIS/TET] 0.5 ML VIAL IM ONE (18:12)
[2024-09-24 20:00] VITALS: BP 111/66; TEMP 98.4; O2SAT 97
[2024-09-25 08:00] VITALS: BP 124/91; TEMP 98; O2SAT 98
[2024-09-25] MEDS: DIVALPROEX SODIUM 125 MG CAP.SPRINK PO SCH (12:36)
[2024-09-25 16:00] VITALS: BP 102/70; TEMP 98; O2SAT 98
[2024-09-25] MEDS: OLANZAPINE ZYDIS 5 MG TAB.RAPDIS PO SCH (16:58)
[2024-09-25] MEDS: LITHIUM CARBONATE 150 MG CAPSULE PO SCH (16:58)
[2024-09-25 20:00] VITALS: BP 123/80; TEMP 98.1; O2SAT 98
[2024-09-26 08:57] VITALS: BP 127/85; TEMP 97.5; O2SAT 98
[2024-09-26] MEDS: hydrOXYzine PAMOATE 25 MG CAPSULE PO PRN (10:39)
[2024-09-26] MEDS: OLANZAPINE ZYDIS 5 MG TAB.RAPDIS PO SCH (16:13)
[2024-09-26 16:35] VITALS: BP 128/79; TEMP 98; O2SAT 98
[2024-09-26 20:12] VITALS: BP 129/81; TEMP 97.8; O2SAT 100
[2024-09-27 20:50] VITALS: BP 127/87; TEMP 97.8; O2SAT 98
[2024-09-28] MEDS: diphenhydrAMINE HCL 50 MG/ML VIAL IM STA (11:57)
[2024-09-28] MEDS: HALOPERIDOL LACTATE INJ 5 MG/ML VIAL IM STA (11:57)
[2024-09-28 16:00] VITALS: BP 100/71; TEMP 98.1; O2SAT 98
[2024-09-28 21:42] VITALS: BP 98/70; TEMP 98.1; O2SAT 98
[2024-09-29 08:00] VITALS: BP 100/76; TEMP 97.7; O2SAT 98
[2024-09-29] MEDS: OLANZAPINE ZYDIS 5 MG TAB.RAPDIS PO SCH (08:49)
[2024-09-29] MEDS: HALOPERIDOL LACTATE INJ 5 MG/ML VIAL IM ONE (12:33)
[2024-09-29] MEDS: diphenhydrAMINE HCL 50 MG/ML VIAL IM ONE (12:33)
[2024-09-29 20:26] VITALS: BP 108/61; TEMP 97.7; O2SAT 98
[2024-09-30 16:01] VITALS: BP 109/59; TEMP 97.7; O2SAT 100
[2024-09-30 19:55] VITALS: BP 115/74; TEMP 97.9; O2SAT 100
[2024-10-01 08:00] VITALS: BP 130/90; TEMP 98.7; O2SAT 98
[2024-10-01 15:48] VITALS: BP 130/88; TEMP 97.8; O2SAT 100
[2024-10-01 20:52] VITALS: BP 121/87; TEMP 97.7; O2SAT 99
[2024-10-01 20:59] VITALS: BP 121/87; TEMP 97.7; O2SAT 99
[2024-10-02 08:00] VITALS: BP 122/77; TEMP 97.7; O2SAT 98
[2024-10-02 16:00] VITALS: BP 115/82; TEMP 97.9; O2SAT 96
[2024-10-02 20:00] VITALS: BP 108/79; TEMP 98.6; O2SAT 99
[2024-10-03 08:00] VITALS: BP 127/91; TEMP 98; O2SAT 98
[2024-10-03] MEDS: HALOPERIDOL LACTATE INJ 5 MG/ML VIAL IM ONE (15:06)
[2024-10-03] MEDS: diphenhydrAMINE HCL 50 MG/ML VIAL IM ONE (15:08)
[2024-10-03 16:00] VITALS: BP 100/71; TEMP 98.8; O2SAT 97
[2024-10-03 20:00] VITALS: BP 126/64; TEMP 98.2; O2SAT 97
[2024-10-04 08:00] VITALS: BP 121/68; TEMP 97.6; O2SAT 98
[2024-10-04 16:00] VITALS: BP 131/68; TEMP 98; O2SAT 97
[2024-10-04 20:00] VITALS: BP 109/76; TEMP 97.9; O2SAT 97
[2024-10-05 08:00] VITALS: BP 114/84; TEMP 98.9; O2SAT 96
[2024-10-05 16:00] VITALS: BP 102/90; TEMP 98.4; O2SAT 98
[2024-10-05 20:43] VITALS: BP 98/71; TEMP 98.8; O2SAT 100
[2024-10-06 08:24] VITALS: BP 96/73; TEMP 98.6; O2SAT 100
[2024-10-06 16:55] VITALS: BP 108/79; TEMP 98.7; O2SAT 100
[2024-10-06 20:49] VITALS: BP 112/85; TEMP 98.5; O2SAT 100
[2024-10-07 08:00] VITALS: BP 108/88; TEMP 98.7; O2SAT 97
[2024-10-07 16:00] VITALS: BP 101/66; TEMP 98.7; O2SAT 100
[2024-10-07 19:35] VITALS: BP 115/79; TEMP 98.5; O2SAT 100
[2024-10-08 08:00] VITALS: BP 99/74; TEMP 98.1; O2SAT 98
== END 2024-10-08 16:18 | DRG 885 ==
LOC: GPS 12:55
PROVIDERS: ADMIT Psychiatry & Neurology Psychiatry
DX: F20.0 Paranoid schizophrenia (principal); F79 Unspecified intellectual disabilities; E44.0 Moderate protein-calorie malnutrition; Z79.899 Other long term (current) drug therapy; Z79.84 Long term (current) use of oral hypoglycemic drugs; E86.0 Dehydration; E11.9 Type 2 diabetes mellitus without complications; R79.89 Other specified abnormal findings of blood chemistry; Z95.0 Presence of cardiac pacemaker; Z86.79 Personal history of other diseases of the circulatory system; G40.909 Epilepsy, unspecified, not intractable, without status epilepticus; I25.2 Old myocardial infarction; E88.09 Other disorders of plasma-protein metabolism, not elsewhere classified; S01.01XA Laceration without foreign body of scalp, initial encounter; W19.XXXA Unspecified fall, initial encounter; Y92.9 Unspecified place or not applicable
CPT/HCPCS: 36415; 70450-TC; 80053-TC; 80061-TC; 80164-TC; 80178-TC; 81001; 82962-TC; 84443-TC; 90715; J1200; J1630; J1815; J2060; J3230; J3490; Q0177

== ENCOUNTER 2024-12-08 13:13 | Emergency (ER) | payer MEDICARE, OTHER ==
[~2024-12-08] VITALS: Ht 165.1 cm; Wt 59.0 kg
[~2024-12-08 13:13] MED LIST changes: -ACET-868 PO; +BENZ1TAB7 PO; -BISA10SU11 RC; +CELE50CA2 PO; -CLON0.5T4 PO; +EMPA10TA PO; +FERR325T24 PO; +HALO10TA13 PO; -LACT10SO29 PO; +LEVE500T20 PO; -LORA-259 PO; +LOSA50TA39 PO; -MAGN400O6 PO; -MELA3TAB41 PO; +MULT-594 PO; -NA P133E RC; +OLAN5TAB3 PO; +QUET200T PO; +SODI10PO PO; +VALP250C3 PO
[2024-12-08 14:27] LABS: ALCOHOL, BLOOD < 3 mg/dL (0-10); ASPARTATE AMINOTRANSFERASE 55 U/L (15-37); TOTAL PROTEIN, SERUM 7.0 g/dL (6.4-8.2)
[2024-12-08] MEDS ORDERED: LORAZEPAM INJ 2 MG/ML VIAL ONE (15:21)
[2024-12-08] MEDS: LORAZEPAM INJ 2 MG/ML VIAL IM ONE (15:27)
[2024-12-08] MEDS: MIDAZOLAM HCL 2 MG/2ML VIAL IM ONE (16:30)
[2024-12-08 17:42] LABS: APPEARANCE,URINE SLIGHTLY CLOUDY (CLEAR); BLOOD, URINE TRACE Ery/uL (NEGATIVE); LEUKOCYTE ESTERASE ,URINE 2+ (NEGATIVE); NITRITE, URINE POSITIVE (NEGATIVE); UGLUCOSE 3+ mg/dL (NEGATIVE)
[2024-12-08 17:57] LABS: CALCIUM, SERUM 9.0 mg/dL (8.5-10.1); CREATININE 1.4 mg/dL (0.6-1.3); SODIUM SERUM 139.0 mmol/L (136-145); UREA NITROGEN, BLOOD 35.0 mg/dL (7-18)
[2024-12-08 18:06] LABS: ADD URINE CULTURE YES
[2024-12-08] MEDS: CEPHALEXIN MONOHYDRATE 500 MG CAPSULE PO ONE (18:30)
[2024-12-08 18:38] LABS: AMPHETAMINE, URINE NEGATIVE (NEGATIVE); BARBITURATE, URINE NEGATIVE (NEGATIVE); BENZODIAZEPINE, URINE NEGATIVE (NEGATIVE); CANNABINOID, URINE NEGATIVE (NEGATIVE); COCCAINE, URINE NEGATIVE (NEGATIVE); OPIATE, URINE NEGATIVE (NEGATIVE)
[2024-12-08 19:31] LABS: PLATELET COUNT (AUTO) 190 K/uL (150-450); RED BLOOD CELL COUNT(AUTO) 3.64 MIL/uL (4.0-5.2); RED CELL DISTRIBUTION WIDTH 18.4 % (11.5-15.0); WHITE BLOOD COUNT (AUTO) 5.1 K/uL (4.3-11.0)
[2024-12-08 19:55] VITALS: BP 129/85; TEMP 98.1; O2SAT 98
== END 2024-12-08 19:58 ==
LOC: ER 13:18
DX: R45.1 Restlessness and agitation (principal); N39.0 Urinary tract infection, site not specified; E11.9 Type 2 diabetes mellitus without complications; F20.0 Paranoid schizophrenia; K21.9 Gastro-esophageal reflux disease without esophagitis; I10 Essential (primary) hypertension; Z79.84 Long term (current) use of oral hypoglycemic drugs; Z79.899 Other long term (current) drug therapy; Z95.0 Presence of cardiac pacemaker; Z86.69 Personal history of other diseases of the nervous system and sense organs; Z86.79 Personal history of other diseases of the circulatory system; Z87.39 Personal history of other diseases of the musculoskeletal system and connective tissue
CPT/HCPCS: 99284; 96372; 93005; 85025; 80048; 80076; 81001; 36415; 80143; 80320; 80307; J2060; J1200; 87086-TC; G0480